=== PATIENT | male | born 1955 | race Caucasian/White ===

== ENCOUNTER 2021-01-30 16:21 | Observation (INO) | payer BC ==
[2021-01-30] MEDS ORDERED: Acetaminophen 325 MG TAB PO PRN (16:40)
[2021-01-30] MEDS ORDERED: Ondansetron ODT 4 MG TAB PO PRN (16:40)
[2021-01-30 17:07] VITALS: BMI 27.9
[2021-01-30 17:57] LABS: Troponin I Less than 0.010 ng/mL (< 0.028)
[2021-01-30 20:22] LABS: Troponin I Less than 0.010 ng/mL (< 0.028)
[2021-01-30] MEDS: Gabapentin 300 MG CAP PO SCH (20:44)
[2021-01-30] MEDS: Metoprolol Tartrate 50 MG TAB PO SCH (20:45)
[2021-01-30] MEDS ORDERED: Doxepin HCl 25 MG CAP PO SCH (21:00)
[2021-01-30] MEDS ORDERED: Atorvastatin Calcium 10 MG TAB PO SCH (21:00)
[2021-01-31 05:23] LABS: Hemoglobin 12.1 g/dL (13.5-17.5); Mean Corpuscular HGB CONC 33.8 g/dL (32.0-36.0); Mean Corpuscular Hemoglobin 30.8 pg (27.0-33.0); Mean Corpuscular Volume 91.1 fl (81.2-95.1); Mean Platelet Volume 10.7 fl (7.4-10.4); Platelet Count 168 10x3/uL (150-450); RBC Distribution Width 12.5 % (11.5-14.5); Red Blood Cell (RBC) Count 3.93 10x6/uL (4.32-5.72); White Blood Cell (WBC) Count 10.4 10x3/uL (3.5-10.5)
[2021-01-31 05:29] LABS: Anion Gap 12 mmol/L (10-20); BUN (Urea Nitrogen) 9 mg/dL (8.4-25.7); Calc. Creatinine Clearance 147 mL/min (70-130); Calcium 9.1 mg/dL (7.8-10.44); Carbon Dioxide 25 mmol/L (23-31); Cardiac Risk 3.1 (Less than 4.5); Chloride 105 mmol/L (98-107); Cholesterol 154 mg/dl (< 200 Desired); Glucose 100 mg/dL (80-115); HDL Cholesterol 50 mg/dL (>60 Neg Risk); LDL Cholesterol, Calculated 85 mg/dL; Potassium 3.6 mmol/L (3.5-5.1); Sodium 138 mmol/L (136-145); Triglycerides 94 mg/dL (Less than 150)
[2021-01-31 05:54] LABS: MDiff Complete? YES
[2021-01-31 05:58] LABS: Eosinophils 1 % (0-10); Lymphocytes 55 % (21-51); Monocytes 4 % (0-10); Neutrophil 31 % (42-75); Reactive Lymphocytes 9 % (0-10)
[2021-01-31 06:02] LABS: Platelet Morphology Comment Appears Adequate; RBC Morphology Normal
[2021-01-31] MEDS ORDERED: Spironolactone 25 MG TAB PO SCH (08:00)
[2021-01-31] MEDS ORDERED: Hydrochlorothiazide 25 MG TAB PO SCH (08:00)
[2021-01-31] MEDS: Gabapentin 300 MG CAP PO SCH (08:34)
[2021-01-31] MEDS: Metoprolol Tartrate 50 MG TAB PO SCH (08:34)
[2021-01-31] MEDS ORDERED: Aspirin Chewable 81 MG TAB PO SCH (09:00)
[2021-01-31] MEDS ORDERED: Potassium Chloride 20 MEQ TAB PO SCH (11:15)
[2021-01-31 13:33] LABS: SARS-CoV-2 PCR by NAA Not Detected (NotDetected)
[2021-01-31 16:25] VITALS: BP 147/69; TEMP 97.2
== END 2021-01-31 18:15 | disposition home or self-care (01) ==
LOC: CSHTELE 16:21 → INTOOBSV 16:21
PROVIDERS: ADMIT Internal Medicine; ATTEND Physician Assistant
DX: R55 Syncope and collapse (principal); I25.10 Atherosclerotic heart disease of native coronary artery without angina pectoris; Z95.5 Presence of coronary angioplasty implant and graft; I10 Essential (primary) hypertension; Z79.899 Other long term (current) drug therapy; E78.2 Mixed hyperlipidemia; I48.0 Paroxysmal atrial fibrillation; K21.9 Gastro-esophageal reflux disease without esophagitis; Z87.891 Personal history of nicotine dependence; C91.10 Chronic lymphocytic leukemia of B-cell type not having achieved remission; Z20.822 Contact with and (suspected) exposure to COVID-19
CPT/HCPCS: 36415; 36416; 80048; 80061; 83735; 84443; 84484; 85025; 93306; G0378; U0003; U0005

== ENCOUNTER 2021-02-02 10:30 | Observation (INO) | payer BC ==
[2021-02-02 11:08] LABS: Hemoglobin 13.5 g/dL (13.5-17.5); Mean Corpuscular HGB CONC 34.6 g/dL (32.0-36.0); Mean Corpuscular Hemoglobin 31.3 pg (27.0-33.0); Mean Corpuscular Volume 90.3 fl (81.2-95.1); Mean Platelet Volume 10.2 fl (7.4-10.4); Platelet Count 201 10x3/uL (150-450); Red Blood Cell (RBC) Count 4.32 10x6/uL (4.32-5.72); White Blood Cell (WBC) Count 17.5 10x3/uL (3.5-10.5)
[2021-02-02 11:12] LABS: MDiff Complete? YES
[2021-02-02 11:28] LABS: ALT (SGPT) 32 U/L (8-55); AST (SGOT) 30 U/L (5-34); Albumin 4.6 g/dL (3.4-4.8); Alkaline Phosphatase 67 U/L (40-110); Anion Gap 14 mmol/L (10-20); BUN (Urea Nitrogen) 11 mg/dL (8.4-25.7); Bilirubin, Total 0.8 mg/dL (0.2-1.2); CK (CPK) 74 U/L (30-200); Calc. Creatinine Clearance 0 mL/min (70-130); Calcium 9.3 mg/dL (7.8-10.44); Carbon Dioxide 24 mmol/L (23-31); Chloride 97 mmol/L (98-107); Globulin 2.1 g/dL (2.4-3.5); Glucose 101 mg/dL (80-115); Magnesium 1.8 mg/dL (1.6-2.6); Potassium 3.9 mmol/L (3.5-5.1); Protein, Total 6.7 g/dL (5.8-8.1); Sodium 131 mmol/L (136-145)
[2021-02-02 11:40] LABS: Eosinophils 1 % (0-10); Neutrophil 29 % (42-75); Reactive Lymphocytes 4 % (0-10)
[2021-02-02 11:50] LABS: Lymphocytes 56 % (21-51); Monocytes 10 % (0-10)
[2021-02-02 11:51] LABS: Platelet Morphology Comment Appears Adequate
[2021-02-02 11:53] LABS: RBC Morphology Normal
[2021-02-02] MEDS ORDERED: Aspirin Chewable 81 MG TAB ONE (14:05)
[2021-02-02] MEDS: Metoprolol Tartrate 25 MG TAB PO SCH (21:51)
[2021-02-03 04:45] LABS: Anion Gap 13 mmol/L (10-20); BUN (Urea Nitrogen) 13 mg/dL (8.4-25.7); Calc. Creatinine Clearance 0 mL/min (70-130); Calcium 9.4 mg/dL (7.8-10.44); Carbon Dioxide 25 mmol/L (23-31); Chloride 102 mmol/L (98-107); Glucose 98 mg/dL (80-115); Potassium 3.6 mmol/L (3.5-5.1); Sodium 136 mmol/L (136-145)
[2021-02-03] MEDS: Metoprolol Tartrate 25 MG TAB PO SCH (09:22)
[2021-02-03 12:08] VITALS: BP 126/78; TEMP 97.9
== END 2021-02-03 15:44 | disposition home or self-care (01) ==
LOC: CSHERS 10:30 → CSHERHOLD 14:08 → CSHTELE 18:26
PROVIDERS: ADMIT Internal Medicine; ATTEND Internal Medicine
DX: R42 Dizziness and giddiness (principal); C91.10 Chronic lymphocytic leukemia of B-cell type not having achieved remission; E78.00 Pure hypercholesterolemia, unspecified; Z79.899 Other long term (current) drug therapy
CPT/HCPCS: 36415; 70450; 70551; 71045; 80048; 80053; 82550; 83735; 83880; 84443; 84484; 85025; 93005; 93880; 94760; G0378